=== PATIENT | male | born 1990 | race Caucasian/White ===

== ENCOUNTER → 2020-09-10 | Outpatient (REF) ==
--- NOTE | 2020-09-10 13:07 | REP ---
INDICATION: RIGHT KNEE PAIN. COMPARISON: None. TECHNIQUE: Five views of the right knee are provided. FINDINGS: Five views of the right knee demonstrate normal bones, joints, and soft tissues. No fracture or subluxation is seen. No opaque foreign body noted. IMPRESSION: Negative right knee series. <Electronically signed by Pj Graf > 09/10/20 [id number]
== END ==
LOC: M PLAIMG 10:11
PROVIDERS: ATTEND Internal Medicine
DX: M25.561 Pain in right knee (principal)

== ENCOUNTER → 2020-10-22 | Outpatient (REF) ==
--- NOTE | 2020-10-22 11:46 | REP ---
INDICATION: R KNEE PAIIN/L- BACK CHRONIC PAIN. COMPARISON: Comparison right knee radiographs September 10, 2020. TECHNIQUE: AP and lateral views of the right knee. FINDINGS: AP and latter views of the oral right knee demonstrate normal bones, joints, and soft tissues. No fracture or subluxation is seen. No opaque foreign body noted. IMPRESSION: Negative right knee series. <Electronically signed by Pj Graf > 10/22/20 [id number]
--- NOTE | 2020-10-22 11:47 | REP ---
INDICATION: R KNEE PAIIN/L- BACK CHRONIC PAIN. COMPARISON: None. TECHNIQUE: AP, lateral, and lateral spot views are presented. FINDINGS: Lumbar vertebral body heights are preserved. Alignment is normal. Disc spaces are maintained. Pedicles and posterior elements are intact. There is no evidence of spondylolysis or spondylolisthesis. Sacrum and SI joints are intact. Psoas margins are symmetric. IMPRESSION: Negative lumbar spine radiographs. <Electronically signed by Pj Graf > 10/22/20 [id number]
== END ==
LOC: M PLAIMG 09:54
PROVIDERS: ATTEND Internal Medicine
DX: M25.561 Pain in right knee (principal); M54.5 Low back pain